=== PATIENT | female | born 1965 | race Caucasian/White ===

== ENCOUNTER 2025-03-02 11:44 | Emergency (ER) | payer BC, OTHER ==
[~2025-03-02] VITALS: Ht 172.7 cm; Wt 104.3 kg
[2025-03-02 11:46] VITALS: TEMP 97
--- NOTE | 2025-03-02 14:05 | Physician Documentation ---
History of Present Illness ~ Chief Complaint: Extremity Swelling Stated Complaint: SWELLING IN LEG Time Seen by MD: 13:27 Primary Medical Doctor: NONE HPI Patient is seen today with complaints of swelling and pain of left lower extremity. She denies any swelling of the right lower extremity. Patient states symptoms started a few days ago. She has no other concern or complaint at this time. Tetanus witin 5 years: Yes Medication Reconciliation Allergies: Coded Allergies: No Known Allergies (Unverified , 03/02/25) Review of Systems Constitutional: Denies: chills, fever, weakness Eyes: Denies: pain, blurred vision ENT: Denies: ear pain, nose pain, throat pain, mouth pain Respiratory: Denies: cough, shortness of breath Cardiovascular: Denies: chest pain, palpitations Gastrointestinal: Denies: abdominal pain, nausea, vomiting Genitourinary: Denies: burning, dysuria Female Genitalia: Denies: vaginal discharge, pelvic pain Neurological: Denies: headache, dizziness Musculoskeletal: Denies: pain, swelling Integumentary: Denies: rash, lesions Allergic/Immunologic: Denies: hives, itching Hematologic/Lymphatic: Denies: no symptoms reported Psychiatric: Denies: depression, anxiety Physical Exam Vital Signs: Temperature: 97.0, Source: Temporal, Heart Rate: 90, Respiratory Rate: 16, BP: 142/99, Pulse Oximetry: 98, Weight: 104.300 Oxygen Flow Rate: 0 Physical Exam General: Awake and Alert, no acute distress. HEENT: Conjunctiva pink, Sclera clear, Mucus Membranes moist. Neck: Supple without masses and tenderness. Resp: Unlabored. Lungs clear to auscultation bilaterally. Heart: Regular Rate and rhythm, normal S1 and S2 without murmur, rub or gallop. Extremities: Patient on exam does have mild edema of bilateral lower extremities worse on the left side slightly. Patient has mild tenderness to palpation in the left thigh adductor area. I do not appreciate any ecchymosis or sign of trauma or infection. Patient is neurovascularly intact distally. Motor function intact distally. Skin: Warm and Dry. Progress Results/Orders Results/Orders Orders - URIEL MCKEON PAC Vl Venous (03/02/25 14:04) Completed Orders - URIEL MCKEON PAC Vl Venous (03/02/25 14:04) Vital Signs 03/02/25 11:46 Temp 97.0 Pulse 90 Resp 16 B/P (MAP) 142/99 Pulse Ox 98 O2 Flow Rate 0 EKG/XRAY/CT/US/VASC/MRI Ultrasound : Impression VASCULAR Patient: CHERISE COHEN Medical Record: [id number] [facility] : 1965, Age: 59 Sex: F Location: ER Patient Status: [facility] ER Service Date/Time: 03/02/251403 Ordering Physician: URIEL MCKEON PAC Exam Name: VENOUS Technologist: Tim Hackett LEFT LOWER EXTREMITY VENOUS DUPLEX REASON FOR EXAMINATION: Left lower extremity pain and edema. COMPARISON: None TECHNIQUE: Using real-time freeze-frame technique with a high-frequency transducer, multiple longitudinal and transverse sections were obtained. Simultaneous color flow and spectral Doppler imaging was performed. FINDINGS: There is good visualization of the deep venous system with no intraluminal filling defects identified. Normal venous compressibility is seen and there is flow augmentation. Color flow Doppler imaging is unremarkable. IMPRESSION: NO EVIDENCE OF DEEP VENOUS THROMBOSIS. Dictated by:WYATT PARMAR MD Dictation date and time:03/02/251499 Electronically Signed by: WYATT PARMAR MD Date and Time: 03/02/251499 Transcribed: [facility] Transcribed: NO PRIMARY CARE PROVIDER~ cc: URIEL MCKEON PAC; WYATT PARMAR MD ~ Medical Decision Making Additional information obtaine: N/A Findings Patient is seen today with complaints of swelling and pain of left lower extremity. She denies any swelling of the right lower extremity. Patient states symptoms started a few days ago. She has no other concern or complaint at this time. Patient did have ultrasound of left lower extremity to rule out DVT. No DVT was visible and left lower extremity. Patient will monitor symptoms closely and will follow up with primary care in 3-5 days if no better or as needed sooner. Return to ED with any worsening, concerning or changing symptoms. General Diff Dx:Considerations: Include: Abrasion, Contusion, Fracture, Hematoma Knee Diff Dx:Considerations: Unlikely: Abrasion, Arthritis, Contusion, DJD, Fracture-femur, Fracture-fibula, Fracture-patella, Fracture-tibia, Gout, Hematoma, Laceration, Meniscus injury, Neurovascular injury, Open fracture, Rheumatoid arthritis, Septic, Sprain, Sprain-MCL, Sprain-LCL, Sprain-ACL, Sprain-PCL, Other Ankle Diff Dx:Considerations: Unlikely: Abrasion, Arthritis, Contusion, DJD, Fracture-metatarsal, Fracture-fibula, Fracture-tarsal, Fracture-tibia, Gout, Hematoma, Laceration, Malunion, Neurovascular injury, Nonunion, Open fracture, Osteomyelitis, Rheumatoid arthritis, Sprain, Septic, Ulcer, Other Foot Diff Dx:Considerations: Unlikely: Abrasion, Arthritis, Cellulitis, Contusion, Dislocation, DJD, Fracture-metatarsal, Fracture-phalynx, Fracture- tarsal, Gout, Hematoma, Ingrown toenail, Laceration, Malunion, Neurovascular injury, Open fracture, Paronychia, Puncture, Rheumatoid, Sprain, Septic, Subungual hematoma, Ulcer, Other Toe Diff Dx:Considerations: Unlikely: Abrasion, Cellulitis, Contusion, Dislocation, Felon, Fracture, Hematoma, Laceration, Neurovascular injury, Open fracture, Paronychia, Subungual hematoma, Other Departure Disposition: 01 HOME / SELF CARE / HOMELESS Impression: Primary Impression: Edema of lower extremity Condition: Stable Discharge Instructions: Chronic Venous Insufficiency Additional Instructions: Patient did have ultrasound of left lower extremity to rule out DVT. No DVT was visible and left lower extremity. Patient will monitor symptoms closely and will follow up with primary care in 3-5 days if no better or as needed sooner. Return to ED with any worsening, concerning or changing symptoms. Referrals: NO PRIMARY CARE PROVIDER (PCP) Signature Scribe Signature: No scribe Attestation: No scribe URIEL MCKEON Mar 02, 2025 14:05
--- NOTE | 2025-03-02 15:03 | VASCULAR REPORT ---
LEFT LOWER EXTREMITY VENOUS DUPLEX REASON FOR EXAMINATION: Left lower extremity pain and edema. COMPARISON: None TECHNIQUE: Using real-time freeze-frame technique with a high-frequency transducer, multiple longitudinal and transverse sections were obtained. Simultaneous color flow and spectral Doppler imaging was performed. FINDINGS: There is good visualization of the deep venous system with no intraluminal filling defects identified. Normal venous compressibility is seen and there is flow augmentation. Color flow Doppler imaging is unremarkable. IMPRESSION: NO EVIDENCE OF DEEP VENOUS THROMBOSIS.
[2025-03-02 15:53] VITALS: BP 145/98; PULSE 92; RESP 18; O2SAT 94
== END 2025-03-02 15:59 | disposition home or self-care (01) ==
LOC: ER 11:44
DX: R60.0 Localized edema (principal)
CPT/HCPCS: 93971; 99284